=== PATIENT | female | born 1995 | race Two or more races ===

== ENCOUNTER 2016-06-27 12:08 | Emergency (ER) | payer MEDICAID ==
[~2016-06-27] VITALS: Ht 157.5 cm; Wt 63.5 kg
[~2016-06-27 12:08] MED LIST: MACROBID100 MG ORAL
[2016-06-27 12:24] VITALS: BP 134/81
[2016-06-27] MEDS ORDERED: Mylanta II UD 30ml ORAL ONE (12:45)
[2016-06-27] MEDS ORDERED: Famotidine 20 MG/ 2ML VIAL IVP ONE (12:45)
[2016-06-27] MEDS ORDERED: Lidocaine 2% Visc 15ml soln ORAL ONE (12:45)
[2016-06-27] MEDS ORDERED: Dicyclomine HCl 10mg/5ml oral soln ORAL ONE (12:45)
[2016-06-27 12:56] LABS: BASOPHILS % (AUTO) 0.5 % (0.0-2.0); EOSINOPHILS % (AUTO) 0.7 % (0.0-3.0); LYMPHOCYTES % (AUTO) 8.8 % (20.0-45.0); MEAN CORPUSCULAR HGB CONC 32.6 G/DL (32.0-36.0); MEAN CORPUSCULAR VOLUME 89 FL (80-99); MEAN PLATELET VOLUME 6.6 FL (6.5-10.1); MONOCYTES % (AUTO) 5.6 % (1.0-10.0); NEUTROPHILS % (AUTO) 84.4 % (45.0-75.0); PLATELET COUNT 320 K/UL (150-450); RED BLOOD COUNT 5.05 M/UL (4.20-5.40); RED CELL DISTRIBUTION WIDTH 11.9 % (11.6-14.8); WHITE BLOOD COUNT 12.6 K/UL (4.8-10.8)
[2016-06-27 13:04] LABS: ALANINE AMINOTRANSFERASE 11 U/L (3-33); ALBUMIN/GLOBULIN RATIO 1.3 (1.0-2.7); AMYLASE 46 U/L (10-110); ANION GAP 15 (5-15); ASPARTATE AMINO TRANSFERASE 17 U/L (5-40); CALCIUM 9.4 mg/dL (8.6-10.2); CARBON DIOXIDE 26 mEQ/L (20-30); CHLORIDE 96 mEQ/L (98-107); CREATININE 0.6 mg/dL (0.5-0.9); GLOMERULAR FILTRATION RATE > 60 mL/min (>60); HEMOLYSIS 2; LIPASE 22 U/L (< 60); POTASSIUM 3.8 mEQ/L (3.4-4.9); SODIUM 137 mEQ/L (135-145); TOTAL PROTEIN 7.9 g/dL (6.6-8.7); TROPONIN I < 0.30 ng/mL (<=0.30)
--- NOTE | 2016-06-27 13:27 | Emergency Room Report ---
History of Present Illness General Chief Complaint: Chest Pain Present Illness HPI The patient is a 20-year-old female with a history of congenital ASD presenting for mid upper abdominal pain which began yesterday. Pain is described as a 10/ 10 dull ache which radiates up to the mid chest. The patient denies any provoking relieving factors. Pain is constant. The patient denies any known, to the area or new activities. Pt denies recent travel. Pt denies OCP use. The pt denies any other symptoms including N, V, F, chills, cough, REYNOSO, dizziness, dysuria, vaginal DC, flank pain, SOB The patient states that she has never seen a leadlighter and denies any other medical Hx. Pt denies any familial cardiac Hx. Allergies: Coded Allergies: No Known Allergies (Unverified , 07/16/13) Patient History Past Medical History: see triage record Pertinent Family History: none Reviewed Nursing Documentation: PMH: Agreed, PSxH: Agreed Nursing Documentation-PMH Hx Cardiac Problems: Yes - ASD closure Review of Systems All Other Systems: negative except mentioned in HPI Physical Exam Vital Signs Date Time Temp Pulse Resp B/P Pulse Ox O2 Delivery O2 Flow Rate FiO2 06/27/16 12:12 98.2 81 20 134/81 99 Room Air Sp02 EP Interpretation: reviewed, normal General Appearance: no apparent distress, alert, GCS 15, non-toxic Head: normocephalic, atraumatic Eyes: bilateral eye PERRL, bilateral eye normal inspection ENT: hearing grossly normal, normal pharynx, no angioedema, normal voice Neck: full range of motion, supple/symm/no masses Respiratory: chest non-tender, lungs clear, normal breath sounds, no wheezing, speaking full sentences Cardiovascular #1: regular rate, rhythm, no edema Gastrointestinal: normal bowel sounds, soft, no mass, non-distended, tenderness - epigastric Genitourinary: normal inspection, no CVA tenderness Musculoskeletal: back normal, gait/station normal, normal range of motion, non- tender Neurologic: alert, oriented x3, responsive, motor strength/tone normal, sensory intact, speech normal Psychiatric: judgement/insight normal, memory normal, mood/affect normal, no suicidal/homicidal ideation Skin: normal color, no rash, warm/dry, well hydrated Lymphatic: no adenopathy Medical Decision Making PA Attestation Dr. Mckeon is my supervising physician. Patient management was discussed with my supervising physician Diagnostic Impression: Primary Impression: Gastritis ER Course The patient is a 20-year-old female with a history of congenital ASD presenting for mid upper abdominal pain which began yesterday. Differential diagnoses considered include but not limited to gastritis, pancreatitis, appendicitis, ACS, , UTI PE: Vitals WNL. NAD. RRR. Lungs CTA bilat Abdomen: Normal appearance. Non distended. No ecchymosis. Normal BS. + epigastric TTP. No McBurney point tenderness. No guarding. No CVA tenderness Lab work shows mild leukocytosis. Otherwise unremarkable The patient is given IV fluids, GI cocktail, and Pepcid and states that pain is better, but still present. The patient is given morphine for pain with good relief EKG and chest x-ray are unremarkable The patient is discharged home and will followup with PMD. Patient given prescription for Pepcid. ER precautions are given Laboratory Tests Test 06/27/16 12:20 06/27/16 13:40 White Blood Count 12.6 K/UL (4.8-10.8) H Red Blood Count 5.05 M/UL (4.20-5.40) Hemoglobin 14.7 G/DL (12.0-16.0) Hematocrit 44.9 % (37.0-47.0) Mean Corpuscular Volume 89 FL (80-99) Mean Corpuscular Hemoglobin 29.0 PG (27.0-31.0) Mean Corpuscular Hemoglobin Concent 32.6 G/DL (32.0-36.0) Red Cell Distribution Width 11.9 % (11.6-14.8) Platelet Count 320 K/UL (150-450) Mean Platelet Volume 6.6 FL (6.5-10.1) Neutrophils (%) (Auto) 84.4 % (45.0-75.0) H Lymphocytes (%) (Auto) 8.8 % (20.0-45.0) L Monocytes (%) (Auto) 5.6 % (1.0-10.0) Eosinophils (%) (Auto) 0.7 % (0.0-3.0) Basophils (%) (Auto) 0.5 % (0.0-2.0) Sodium Level 137 mEQ/L (135-145) Potassium Level 3.8 mEQ/L (3.4-4.9) Chloride Level 96 mEQ/L (98-107) L Carbon Dioxide Level 26 mEQ/L (20-30) Anion Gap 15 (5-15) Blood Urea Nitrogen 11 mg/dL (7-23) Creatinine 0.6 mg/dL (0.5-0.9) Estimate Glomerular Filtration Rate > 60 mL/min (>60) Glucose Level 102 mg/dL (74-106) Calcium Level 9.4 mg/dL (8.6-10.2) Total Bilirubin 0.3 mg/dL (0.0-1.2) Aspartate Amino Transferase (AST) 17 U/L (5-40) Alanine Aminotransferase (ALT) 11 U/L (3-33) Alkaline Phosphatase 72 U/L (35-104) Troponin I < 0.30 ng/mL (<=0.30) Total Protein 7.9 g/dL (6.6-8.7) Albumin 4.5 g/dL (3.5-5.2) Globulin 3.4 g/dL Albumin/Globulin Ratio 1.3 (1.0-2.7) Amylase Level 46 U/L (10-110) Lipase 22 U/L (< 60) Urine Color Yellow Urine Appearance Clear Urine pH 6 (4.5-8.0) Urine Specific [place] 1.020 (1.005-1.035) Urine Protein Negative (NEGATIVE) Urine Glucose (UA) Negative (NEGATIVE) Urine Ketones Negative (NEGATIVE) Urine Occult Blood 4+ (NEGATIVE) H Urine Nitrite Negative (NEGATIVE) Urine Bilirubin Negative (NEGATIVE) Urine Urobilinogen 1 MG/DL (0.0-1.0) H Urine Leukocyte Esterase 1+ (NEGATIVE) H Urine RBC 5-10 /HPF (0 - 2) H Urine WBC 2-4 /HPF (0 - 2) Urine Squamous Epithelial Cells Few /LPF (NONE/OCC) Urine Bacteria Few /HPF (NONE) Urine HCG, Qualitative Negative Urine Opiates Screen Negative (NEGATIVE) Urine Barbiturates Screen Negative (NEGATIVE) Phencyclidine (PCP) Screen Negative (NEGATIVE) Urine Amphetamines Screen Negative (NEGATIVE) Urine Benzodiazepines Screen Negative (NEGATIVE) Urine Cocaine Screen Negative (NEGATIVE) Urine Marijuana (THC) Screen Positive (NEGATIVE) H Lab Results Impression CBC shows mild leukocytosis. CMP unremarkable. Amylase and lipase unremarkable Troponin I unremarkable Urinalysis shows no signs of infection. EKG Diagnostic Results Rate: normal - 76 Rhythm: NSR ST Segments: no acute changes ASA given to the pt in ED: No PA Scribe Text EKG was reviewed and read with my supervising physician. No acute ST segment changes are seen. Normal rate and rhythm. No acute changes. Chest X-Ray Diagnostic Results EP Interpretation: Yes Findings: no consolidation, no effusion, no pneumothorax, no acute cardiopulmonary disease Number of Views: 1 PA Scribe Text I am acting as scribe for my supervising physician. My supervising physician's interpretation of the chest xrays are there is no consolidation, no effusion, no acute cardiopulmonary disease, no pneumothorax Last Vital Signs Date Time Temp Pulse Resp B/P Pulse Ox O2 Delivery O2 Flow Rate FiO2 06/27/16 12:24 81 20 Room Air 06/27/16 12:24 98.2 134/81 99 Status: improved Disposition: HOME, SELF-CARE Condition: Improved Scripts Famotidine (PEPCID) 40 Mg Tablet 40 MG PO DAILY, #7 TAB 0 Refills Prov: ZARA ARCHIBALD 06/27/16 Referrals: [facility]ERR[facility] (PCP) ZARA ARCHIBALD Jun 27, 2016 13:27
[2016-06-27 13:30] VITALS: BP 121/69
[2016-06-27] MEDS ORDERED: Morphine Sulfate 4mg/ml Inj IVP ONE (13:45)
[2016-06-27 14:04] LABS: APPEARANCE,URINE CLEAR; KETONES,URINE NEGATIVE (NEGATIVE); LEUKOCYTE ESTERASE ,URINE 1+ (NEGATIVE); NITRITE,URINE NEGATIVE (NEGATIVE); PH,URINE 6 (4.5-8.0); PROTEIN,URINE NEGATIVE (NEGATIVE); UROBILINOGEN,URINE 1 MG/DL (0.0-1.0)
[2016-06-27 14:17] LABS: BACTERIA,URINE FEW /HPF; SQUAMOUS EPITHELIAL CELL,UR FEW /LPF (NONE/OCC)
[2016-06-27 14:24] VITALS: BP 119/70
[2016-06-27] MEDS ORDERED: PEPCID40 MG PO (14:25)
[2016-06-27 14:29] VITALS: BP 119/70
--- NOTE | 2016-06-28 10:40 | Diagnostic Imaging Report ---
Indication: Chest pain Technique: XRAY CHEST 1 V Comparison: None Findings: The cardiomediastinal silhouette is within normal limits. There is no focal consolidation, pneumothorax or pleural effusion. Osseous structures demonstrate no acute abnormality. Impression: No acute cardiopulmonary disease.
--- NOTE | 2016-07-01 16:16 | Cardiology Report ---
APPROVED REPORT EKG Measurement Heart [id number] Normal sinus rhythm with sinus arrhythmia Normal ECG
== END 2016-06-27 14:34 | disposition home or self-care (01) ==
LOC: EMR 12:36
DX: K29.70 Gastritis, unspecified, without bleeding (principal); Q21.1 Atrial septal defect; R07.9 Chest pain, unspecified; D72.829 Elevated white blood cell count, unspecified
CPT/HCPCS: 36415; 71010; 80053; 80300; 81003; 81025; 82150; 83690; 84484; 85025; 93005; 96360; 96374; 96375; 99284; J2270; S0028

== ENCOUNTER 2017-07-27 22:18 | Emergency (ER) | payer MEDICAID, OTHER ==
[~2017-07-27] VITALS: Ht 157.5 cm; Wt 56.2 kg
[~2017-07-27 22:18] MED LIST changes: +PEPCID40 MG PO
[2017-07-27] MEDS ORDERED: Sodium Chloride 500ML 500 ML IV ONE (22:51)
[2017-07-27] MEDS ORDERED: Morphine Sulfate 4mg/ml Inj IVP ONE (23:00)
[2017-07-27 23:17] LABS: EOSINOPHILS % (AUTO) 1.9 % (0.0-3.0); HEMATOCRIT 43.3 % (37.0-47.0); HEMOGLOBIN 14.7 G/DL (12.0-16.0); LYMPHOCYTES % (AUTO) 28.4 % (20.0-45.0); MEAN CORPUSCULAR VOLUME 86 FL (80-99); MONOCYTES % (AUTO) 6.2 % (1.0-10.0); NEUTROPHILS % (AUTO) 62.6 % (45.0-75.0); PLATELET COUNT 284 K/UL (150-450); RED BLOOD COUNT 5.05 M/UL (4.20-5.40); RED CELL DISTRIBUTION WIDTH 11.9 % (11.6-14.8); WHITE BLOOD COUNT 9.6 K/UL (4.8-10.8)
[2017-07-27 23:25] LABS: APPEARANCE,URINE CLEAR; BILIRUBIN, URINE NEGATIVE (NEGATIVE); COLOR,URINE PALE YELLOW; GLUCOSE, URINE (UA) NEGATIVE (NEGATIVE); KETONES,URINE NEGATIVE (NEGATIVE); LEUKOCYTE ESTERASE ,URINE NEGATIVE (NEGATIVE); NITRITE,URINE NEGATIVE (NEGATIVE); PH,URINE 7 (4.5-8.0); PROTEIN,URINE NEGATIVE (NEGATIVE); UROBILINOGEN,URINE 1 MG/DL (0.0-1.0)
[2017-07-27 23:28] LABS: ANION GAP 8 mmol/L (5-15); BLOOD UREA NITROGEN 13 mg/dL (7-18); CALCIUM 9.2 MG/DL (8.5-10.1); CARBON DIOXIDE 29 MMOL/L (21-32); CHLORIDE 103 MMOL/L (98-107); CREATININE 0.8 MG/DL (0.55-1.30); POTASSIUM 3.9 MMOL/L (3.5-5.1); SODIUM 140 MMOL/L (136-145)
[2017-07-27 23:33] LABS: ALANINE AMINOTRANSFERASE 27 U/L (12-78); ALBUMIN 3.7 G/DL (3.4-5.0); ALBUMIN/GLOBULIN RATIO 0.9 (1.0-2.7); ALKALINE PHOSPHATASE 77 U/L (46-116); ASPARTATE AMINO TRANSFERASE 22 U/L (15-37); BILIRUBIN,TOTAL 0.4 MG/DL (0.2-1.0)
[2017-07-28] MEDS ORDERED: IBUPROFEN600 MG ORAL (00:33)
[2017-07-28] MEDS ORDERED: Ketorolac 30mg Inj IV ONE (00:45)
[2017-07-28] MEDS ORDERED: Isovue-300 100ml vial INJ PRN (00:45)
[2017-07-28 02:00] VITALS: BP 128/70
[2017-07-28 02:10] VITALS: BP 148/84
--- NOTE | 2017-07-28 03:16 | Emergency Room Report ---
History of Present Illness General Chief Complaint: Abdominal Pain Source: Patient Present Illness HPI 21-year-old female presents ED complaining of abdominal pain 1 day. R lower abdomen, sharp, 8 out of 10, nonradiating. Denies vaginal bleeding or discharge. Denies fevers or chills. Denies nausea or vomiting. No other aggravating relieving factors. Denies any other associated symptoms Allergies: Coded Allergies: No Known Allergies (Unverified , 07/16/13) Patient History Past Medical History: none Past Surgical History: other - ASD Pertinent Family History: none Social History: Denies: smoking, alcohol use, drug use Last Menstrual Period: last month Now: No Immunizations: UTD Reviewed Nursing Documentation: PMH: Agreed; PSxH: Agreed Nursing Documentation-PMH Hx Cardiac Problems: Yes - ASD closure Review of Systems All Other Systems: negative except mentioned in HPI Physical Exam Vital Signs Date Time Temp Pulse Resp B/P (MAP) Pulse Ox O2 Delivery O2 Flow Rate FiO2 07/27/17 22:23 98.4 61 18 148/84 97 Room Air 98.4 Sp02 EP Interpretation: reviewed, normal General Appearance: no apparent distress, alert, GCS 15, non-toxic Head: normocephalic, atraumatic Eyes: bilateral eye normal inspection, bilateral eye PERRL ENT: hearing grossly normal, normal pharynx, no angioedema, normal voice Neck: full range of motion, supple/symm/no masses Respiratory: chest non-tender, lungs clear, normal breath sounds, speaking full sentences Cardiovascular #1: regular rate, rhythm, no edema Cardiovascular #2: 2+ carotid (R), 2+ carotid (L), 2+ radial (R), 2+ radial (L) , 2+ dorsalis pedis (R), 2+ dorsalis pedis (L) Gastrointestinal: normal bowel sounds, soft, non-distended, no guarding, no rebound, tenderness - RLQ Rectal: deferred Genitourinary: normal inspection, no CVA tenderness Musculoskeletal: back normal, gait/station normal, normal range of motion, non- tender Neurologic: alert, oriented x3, responsive, motor strength/tone normal, sensory intact, speech normal Psychiatric: judgement/insight normal, memory normal, mood/affect normal, no suicidal/homicidal ideation Reflexes: 3+ bicep (R), 3+ bicep (L), 3+ tricep (R), 3+ tricep (L), 3+ knee (R) , 3+ knee (L) Skin: normal color, no rash, warm/dry, well hydrated Lymphatic: no adenopathy Medical Decision Making Diagnostic Impression: Primary Impression: Pelvic pain ER Course Hospital Course 21 yo F presents with lower abd pain Differential diagnosis includes-appendicitis, ovarian cyst/torsion, UTI Clinical course Patient placed on stretcher. After initial history and physical I ordered labs , IV fluids, pain medications and US, and CT Labs - no leukocytosis, electrolytes ok, LFTs normal, UA unremarkable Pelvic US - no acute process CT scan shows no acute pathology Discussed findings with patient. On reassessment pain improved. Patient is safe discharged home pending close outpatient follow-up I feel this is a highly complex case requiring extensive working including EKG/ Rhythm strip, Xray/CT/US, Blood/urine lab work, repeat exams while in ED, and administration of strong opiates/narcotics for pain control, admission to hospital or close patient follow up. Diagnosis - pelvic pain Stable and discharged to home with Rx Motrin. Followup with PMD/OBGYN. Return to ED if symptoms recur or worsen Labs Test 07/27/17 22:42 07/27/17 23:03 Urine Color Pale yellow Urine Appearance Clear Urine pH 7 (4.5-8.0) Urine Specific [place] 1.015 (1.005-1.035) Urine Protein Negative (NEGATIVE) Urine Glucose (UA) Negative (NEGATIVE) Urine Ketones Negative (NEGATIVE) Urine Occult Blood Negative (NEGATIVE) Urine Nitrite Negative (NEGATIVE) Urine Bilirubin Negative (NEGATIVE) Urine Urobilinogen 1 MG/DL (0.0-1.0) Urine Leukocyte Esterase Negative (NEGATIVE) Urine HCG, Qualitative Negative (NEGATIVE) White Blood Count 9.6 K/UL (4.8-10.8) Red Blood Count 5.05 M/UL (4.20-5.40) Hemoglobin 14.7 G/DL (12.0-16.0) Hematocrit 43.3 % (37.0-47.0) Mean Corpuscular Volume 86 FL (80-99) Mean Corpuscular Hemoglobin 29.1 PG (27.0-31.0) Mean Corpuscular Hemoglobin Concent 33.9 G/DL (32.0-36.0) Red Cell Distribution Width 11.9 % (11.6-14.8) Platelet Count 284 K/UL (150-450) Mean Platelet Volume 6.5 FL (6.5-10.1) Neutrophils (%) (Auto) 62.6 % (45.0-75.0) Lymphocytes (%) (Auto) 28.4 % (20.0-45.0) Monocytes (%) (Auto) 6.2 % (1.0-10.0) Eosinophils (%) (Auto) 1.9 % (0.0-3.0) Basophils (%) (Auto) 1.0 % (0.0-2.0) Sodium Level 140 MMOL/L (136-145) Potassium Level 3.9 MMOL/L (3.5-5.1) Chloride Level 103 MMOL/L (98-107) Carbon Dioxide Level 29 MMOL/L (21-32) Anion Gap 8 mmol/L (5-15) Blood Urea Nitrogen 13 mg/dL (7-18) Creatinine 0.8 MG/DL (0.55-1.30) Estimat Glomerular Filtration Rate > 60 mL/min (>60) Glucose Level 106 MG/DL (74-106) Calcium Level 9.2 MG/DL (8.5-10.1) Total Bilirubin 0.4 MG/DL (0.2-1.0) Aspartate Amino Transf (AST/SGOT) 22 U/L (15-37) Alanine Aminotransferase (ALT/SGPT) 27 U/L (12-78) Alkaline Phosphatase 77 U/L (46-116) Total Protein 7.7 G/DL (6.4-8.2) Albumin 3.7 G/DL (3.4-5.0) Globulin 4.0 g/dL Albumin/Globulin Ratio 0.9 (1.0-2.7) Lipase 116 U/L (73-393) CT/MRI/US Diagnostic Results CT/MRI/US Diagnostic Results #1: Imaging Test Ordered: Pelvic US Impression No intrauterine Unremarkable uterus and ovaries. No free pelvic fluid. Subcentimeter nabothian cysts. CT/MRI/US Diagnostic Results #2: Imaging Test Ordered: CT A/P Impression Moderate amount of free pelvic fluid (12 HU), more than expected for physiological amount, nonspecific. Normal appendix. Last Vital Signs Date Time Temp Pulse Resp B/P (MAP) Pulse Ox O2 Delivery O2 Flow Rate FiO2 07/28/17 02:10 98.4 18 148/84 97 Room Air 209.1 07/28/17 02:00 64 Status: improved Disposition: HOME, SELF-CARE Condition: Stable Scripts Ibuprofen* (MOTRIN*) 600 Mg Tablet 600 MG ORAL Q8H PRN for For Pain, #30 TAB 0 Refills Prov: Bashir Mckeon MD 07/28/17 Patient Instructions: Abdominal Pain, Adult Bashir Mckeon MD July 28, 2017 03:16
--- NOTE | 2017-07-28 10:32 | Diagnostic Imaging Report ---
Indication: Abdominal pain Technique: CT of the abdomen and pelvis utilizing automated exposure control with intravenous contrast. Venous scanning performed. CT dose: Total DLP 586.98 mGycm; CTDI vol 11.66 mGy Comparison: None Findings: Imaged lung bases are clear. Heart size within normal limits. No pericardial effusion. Liver, gallbladder, spleen, adrenal glands and pancreas are unremarkable. Kidneys enhance symmetrically. No urinary tract stone or hydronephrosis bilaterally. There is mild free pelvic fluid. There is a crenulated enhancing structure in the right adnexal region possibly representing a corpus luteal cyst. There is no free intraperitoneal air. No evidence of bowel obstruction. Appendix is normal in size and the lumen is filled with air. There is no evidence to suggest an acute appendicitis. Bladder is unremarkable in appearance. Abdominal aorta normal in caliber. No pathologically enlarged lymphadenopathy. No acute osseous abnormality seen. IMPRESSION: No definite evidence of acute intra-abdominal pathology. Appendix is normal. No evidence to suggest acute appendicitis. Crenulated enhancing structure in the right adnexa measuring approximately 2 cm represent a corpus luteum cyst. Nonspecific simple appearing free pelvic fluid. The CT scanner at [facility] is accredited by the [employer] and the scans are performed using protocols designed to limit radiation exposure to as low as reasonably achievable to attain images of sufficient resolution adequate for diagnostic evaluation.
--- NOTE | 2017-07-28 10:47 | Diagnostic Imaging Report ---
Indication: Pelvic pain negative test documented in the electronic medical record at time of study. Technique: Transabdominal and endovaginal pelvic ultrasound was performed. Findings: Uterus measures 7.9 x 4.7 x 3.9 cm. The endometrium measures approximately 1.2 cm in thickness possibly reflective of the secretory phase of the menstrual cycle. No focal uterine or endometrial lesion identified. There is subcentimeter anechoic structures in the cervix most representing nabothian cysts. The right ovary measures 2.7 x 2.2 x 2.2 cm/6.7 mL. The left ovary measures 2.1 x 2.1 x 1.9 cm/4.3 mL. Small ovarian follicles are noted bilaterally. Color and Doppler flow noted to the bilateral ovaries. There is mild free pelvic fluid. IMPRESSION: Nonspecific mild free pelvic fluid, possibly physiologic. No adnexal mass identified. No evidence to suggest ovarian torsion at this time. Subcentimeter nabothian cysts. This corresponds with the [facility] preliminary report.
== END 2017-07-28 02:10 | disposition home or self-care (01) ==
LOC: EMR 22:35
DX: R10.2 Pelvic and perineal pain (principal); R10.31 Right lower quadrant pain; N88.8 Other specified noninflammatory disorders of cervix uteri
CPT/HCPCS: 36415; 74177; 76830; 76856; 80053; 81003; 81025; 83690; 85025; 96374; 96375; 99284; J1885; J2270; J7040; Q9967

== ENCOUNTER 2018-01-28 15:36 | Emergency (ER) | payer OTHER ==
[~2018-01-28] VITALS: Ht 157.5 cm; Wt 54.4 kg
[~2018-01-28 15:36] MED LIST changes: +IBUPROFEN600 MG ORAL
[2018-01-28 15:45] VITALS: BP 118/64
[2018-01-28] MEDS ORDERED: traMADol 50mg tab ORAL ONE (16:30)
[2018-01-28] MEDS ORDERED: Methocarbamol 750mg tab ORAL ONE (16:30)
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
[2018-01-28 16:49] LABS: APPEARANCE,URINE CLEAR; BILIRUBIN, URINE NEGATIVE (NEGATIVE); GLUCOSE, URINE (UA) NEGATIVE (NEGATIVE); KETONES,URINE NEGATIVE (NEGATIVE); LEUKOCYTE ESTERASE ,URINE 1+ (NEGATIVE); NITRITE,URINE NEGATIVE (NEGATIVE); PH,URINE 7 (4.5-8.0); PROTEIN,URINE 1+ (NEGATIVE); UROBILINOGEN,URINE 1 MG/DL (0.0-1.0)
[2018-01-28 16:57] LABS: COLOR,URINE YELLOW
--- NOTE | 2018-01-28 17:58 | Diagnostic Imaging Report ---
EXAM: XR Pelvis, 1 or 2 Views CLINICAL HISTORY: PAIN TECHNIQUE: Frontal view of the pelvis. COMPARISON: No relevant prior studies available. FINDINGS: Bones/joints: No acute displaced fracture or dislocation. Soft tissues: Unremarkable. IMPRESSION: No acute displaced fracture or dislocation.
--- NOTE | 2018-01-28 18:07 | Diagnostic Imaging Report ---
EXAM: XR Left Hip, 1 View CLINICAL HISTORY: PAIN TECHNIQUE: Frontal view of the left hip. COMPARISON: No relevant prior studies available. FINDINGS: Bones/joints: No acute displaced fracture or dislocation. Soft tissues: Unremarkable. IMPRESSION: No acute displaced fracture or dislocation.
--- NOTE | 2018-01-28 18:08 | Diagnostic Imaging Report ---
EXAM: XR Left Femur, 2 Views CLINICAL HISTORY: PAIN TECHNIQUE: Frontal and lateral views of the left femur. COMPARISON: No relevant prior studies available. FINDINGS: Bones/joints: No acute displaced fracture or dislocation. Soft tissues: Unremarkable. IMPRESSION: No acute displaced fracture or dislocation.
--- NOTE | 2018-01-28 18:08 | Diagnostic Imaging Report ---
EXAM: XR Left Knee, 3 views CLINICAL HISTORY: PAIN TECHNIQUE: Three views of the left knee. COMPARISON: No relevant prior studies available. FINDINGS: Bones/joints: No acute displaced fracture or dislocation. No significant joint effusion. Soft tissues: Unremarkable. IMPRESSION: No acute displaced fracture or dislocation.
--- NOTE | 2018-01-28 18:09 | Diagnostic Imaging Report ---
EXAM: XR Right Knee, 3 views CLINICAL HISTORY: PAIN TECHNIQUE: Three views of the right knee. COMPARISON: No relevant prior studies available. FINDINGS: Bones/joints: No acute displaced fracture or dislocation. No significant joint effusion. Soft tissues: Unremarkable. IMPRESSION: No acute displaced fracture or dislocation.
[2018-01-28] MEDS ORDERED: TYLENOL EXTRA500 MG ORAL (18:18)
[2018-01-28 18:27] VITALS: BP 122/74
== END 2018-01-28 18:27 | disposition home or self-care (01) ==
LOC: EMR 16:43
DX: S80.02XA Contusion of left knee, initial encounter (principal); M25.559 Pain in unspecified hip; M25.561 Pain in right knee; V03.90XA Pedestrian on foot injured in collision with car, pick-up truck or van, unspecified whether traffic or nontraffic accident, initial encounter; Y93.01 Activity, walking, marching and hiking; Y92.9 Unspecified place or not applicable; Y99.9 Unspecified external cause status
CPT/HCPCS: 72170; 81003; 81025; 99284

== ENCOUNTER 2018-07-24 00:35 | Emergency (ER) | payer MEDICAID, OTHER ==
[~2018-07-24] VITALS: Ht 157.5 cm; Wt 61.2 kg
[~2018-07-24 00:35] MED LIST changes: +TYLENOL EXTRA500 MG ORAL
[2018-07-24] MEDS ORDERED: FERROUS SULFAT325 MG ORAL (00:47)
--- NOTE | 2018-07-24 00:50 | NUR ---
ED Nurse Note: pt walked in c/o abd pain, pt reports she fell down the stairs earlier and hit her abd, pt reports she is 18wk . pt states she still feels baby kicking and denies any vaginal bleeding at this time. will cont monitor. no obvious sx trauma/injury noted.
[2018-07-24 01:06] VITALS: BP 119/73
[2018-07-24 01:30] LABS: BASOPHILS % (AUTO) 0.3 % (0.0-2.0); EOSINOPHILS % (AUTO) 0.4 % (0.0-3.0); HEMATOCRIT 36.1 % (37.0-47.0); HEMOGLOBIN 12.6 G/DL (12.0-16.0); LYMPHOCYTES % (AUTO) 11.4 % (20.0-45.0); MEAN CORPUSCULAR VOLUME 83 FL (80-99); MONOCYTES % (AUTO) 5.2 % (1.0-10.0); NEUTROPHILS % (AUTO) 82.8 % (45.0-75.0); PLATELET COUNT 227 K/UL (150-450); RED BLOOD COUNT 4.35 M/UL (4.20-5.40); RED CELL DISTRIBUTION WIDTH 11.5 % (11.6-14.8)
[2018-07-24 01:47] LABS: APPEARANCE,URINE SLIGHTLY CLOUDY; BILIRUBIN, URINE NEGATIVE (NEGATIVE); COLOR,URINE PALE YELLOW; GLUCOSE, URINE (UA) NEGATIVE (NEGATIVE); KETONES,URINE NEGATIVE (NEGATIVE); LEUKOCYTE ESTERASE ,URINE 3+ (NEGATIVE); NITRITE,URINE NEGATIVE (NEGATIVE); PH,URINE 7 (4.5-8.0); PROTEIN,URINE NEGATIVE (NEGATIVE); UROBILINOGEN,URINE NORMAL MG/DL (0.0-1.0)
[2018-07-24 01:48] LABS: ANION GAP 9 mmol/L (5-15); BLOOD UREA NITROGEN 7 mg/dL (7-18); CALCIUM 8.9 MG/DL (8.5-10.1); CARBON DIOXIDE 26 MMOL/L (21-32); CHLORIDE 101 MMOL/L (98-107); CREATININE 0.4 MG/DL (0.55-1.30); POTASSIUM 3.2 MMOL/L (3.5-5.1); SODIUM 135 MMOL/L (136-145)
[2018-07-24 01:52] LABS: ALANINE AMINOTRANSFERASE 15 U/L (12-78); ALBUMIN 3.2 G/DL (3.4-5.0); ALBUMIN/GLOBULIN RATIO 0.8 (1.0-2.7); ALKALINE PHOSPHATASE 54 U/L (46-116); ASPARTATE AMINO TRANSFERASE 12 U/L (15-37); BILIRUBIN,TOTAL 0.2 MG/DL (0.2-1.0)
[2018-07-24] MEDS ORDERED: NITROFURANTOIN100 M2 ORAL (02:39)
[2018-07-24] MEDS ORDERED: TYLENOL EXTRA500 MG ORAL (02:39)
[2018-07-24 02:47] VITALS: BP 113/76
--- NOTE | 2018-07-24 02:47 | NUR ---
ED Nurse Note: pt cleared to be d/c per ERMD, pt discharge and aftercare instruction provided w/ prescription, pt education done via discussion and handout, pt advised to follow up with pcp or return to ed if changes in condition, pt verbalized understanding and agrees with plan, vss, ambulatory w/ steady gait, left w/ all belongings. iv d/c and id band removed.
--- NOTE | 2018-07-24 03:31 | Emergency Room Report ---
History of Present Illness General Chief Complaint: Multiple Trauma/Fall Source: Patient Present Illness HPI 22-year-old female presents to ED for evaluation. States that tonight she tripped and fell landing on her abdomen. States she is about 18 weeks . Notes some pain, 5 out of 10, nonradiating. Denies vaginal bleeding. Denies any other injuries. No other aggravating relieving factors. Denies any other associated symptoms Allergies: Coded Allergies: No Known Allergies (Unverified , 07/16/13) Patient History Past Medical History: none Past Surgical History: none Pertinent Family History: none Social History: Denies: smoking, alcohol use, drug use Last Menstrual Period: 04/24/18 Now: Yes - 18 WEEKS Immunizations: UTD Reviewed Nursing Documentation: PMH: Agreed; PSxH: Agreed Nursing Documentation-PMH Past Medical History: No History, Except For Hx Cardiac Problems: Yes - ASD closure Review of Systems All Other Systems: negative except mentioned in HPI Physical Exam Vital Signs Date Time Temp Pulse Resp B/P (MAP) Pulse Ox O2 Delivery O2 Flow Rate FiO2 07/24/18 00:42 98.1 86 12 96 Room Air 07/24/18 01:06 119/73 Sp02 EP Interpretation: reviewed, normal General Appearance: no apparent distress, alert, GCS 15, non-toxic Head: normocephalic, atraumatic Eyes: bilateral eye normal inspection, bilateral eye PERRL ENT: hearing grossly normal, normal pharynx, no angioedema, normal voice Neck: full range of motion, supple/symm/no masses Respiratory: chest non-tender, lungs clear, normal breath sounds, speaking full sentences Cardiovascular #1: regular rate, rhythm, no edema Cardiovascular #2: 2+ carotid (R), 2+ carotid (L), 2+ radial (R), 2+ radial (L) , 2+ dorsalis pedis (R), 2+ dorsalis pedis (L) Gastrointestinal: normal bowel sounds, soft, non-distended, no guarding, no rebound, tenderness Rectal: deferred Genitourinary: normal inspection, no CVA tenderness Musculoskeletal: back normal, gait/station normal, normal range of motion, non- tender Neurologic: alert, oriented x3, responsive, motor strength/tone normal, sensory intact, speech normal Psychiatric: judgement/insight normal, memory normal, mood/affect normal, no suicidal/homicidal ideation Reflexes: 3+ bicep (R), 3+ bicep (L), 3+ tricep (R), 3+ tricep (L), 3+ knee (R) , 3+ knee (L) Skin: normal color, no rash, warm/dry, well hydrated Lymphatic: no adenopathy Medical Decision Making Diagnostic Impression: Primary Impression: Threatened Additional Impressions: Fall Qualified Codes: W19.XXXA - Unspecified fall, initial encounter UTI (urinary tract infection) Qualified Codes: N39.0 - Urinary tract infection, site not specified ER Course Hospital Course 22-year-old female presents to ED complaining of abd pain s/p fall. + Differential diagnoses include: gastrits, gastroenterits, ectopic , ovarian torsion/cyst, UTI Clinical course Patient placed on stretcher in ED. After initial history and physical I ordered labs, and OB US Labs-no leukocytosis, electrolytes okay, beta hCG greater than 40,000, UA + bacteria OB US - IUP about 15 weeks with +FHR Discussed findings with patient. Can be discharged to home. Recommend close follow-up with COMPLIANCE TECHNICIAN. We'll provide referrals to COMPLIANCE TECHNICIAN Diagnosis - threatene , fall, UTI Stable and discharged to home with Rx macrobid, tylenol. Followup with PMD/OB/ JUNIOR SOFTWARE ENGINEER. Return to ED if symptoms recur or worsen Labs Test 07/24/18 01:13 White Blood Count 9.0 K/UL (4.8-10.8) Red Blood Count 4.35 M/UL (4.20-5.40) Hemoglobin 12.6 G/DL (12.0-16.0) Hematocrit 36.1 % (37.0-47.0) Mean Corpuscular Volume 83 FL (80-99) Mean Corpuscular Hemoglobin 29.1 PG (27.0-31.0) Mean Corpuscular Hemoglobin Concent 35.0 G/DL (32.0-36.0) Red Cell Distribution Width 11.5 % (11.6-14.8) Platelet Count 227 K/UL (150-450) Mean Platelet Volume 6.2 FL (6.5-10.1) Neutrophils (%) (Auto) 82.8 % (45.0-75.0) Lymphocytes (%) (Auto) 11.4 % (20.0-45.0) Monocytes (%) (Auto) 5.2 % (1.0-10.0) Eosinophils (%) (Auto) 0.4 % (0.0-3.0) Basophils (%) (Auto) 0.3 % (0.0-2.0) Urine Color Pale yellow Urine Appearance Slightly cloudy Urine pH 7 (4.5-8.0) Urine Specific [place] 1.010 (1.005-1.035) Urine Protein Negative (NEGATIVE) Urine Glucose (UA) Negative (NEGATIVE) Urine Ketones Negative (NEGATIVE) Urine Blood 1+ (NEGATIVE) Urine Nitrite Negative (NEGATIVE) Urine Bilirubin Negative (NEGATIVE) Urine Urobilinogen Normal MG/DL (0.0-1.0) Urine Leukocyte Esterase 3+ (NEGATIVE) Urine RBC 10-15 /HPF (0 - 2) Urine WBC 20-30 /HPF (0 - 2) Urine Squamous Epithelial Cells Few /LPF (NONE/OCC) Urine Bacteria Moderate /HPF (NONE) Urine Mucus Few /LPF (NONE/OCC) Urine HCG, Qualitative Positive (NEGATIVE) Sodium Level 135 MMOL/L (136-145) Potassium Level 3.2 MMOL/L (3.5-5.1) Chloride Level 101 MMOL/L (98-107) Carbon Dioxide Level 26 MMOL/L (21-32) Anion Gap 9 mmol/L (5-15) Blood Urea Nitrogen 7 mg/dL (7-18) Creatinine 0.4 MG/DL (0.55-1.30) Estimat Glomerular Filtration Rate > 60 mL/min (>60) Glucose Level 112 MG/DL (74-106) Calcium Level 8.9 MG/DL (8.5-10.1) Total Bilirubin 0.2 MG/DL (0.2-1.0) Aspartate Amino Transf (AST/SGOT) 12 U/L (15-37) Alanine Aminotransferase (ALT/SGPT) 15 U/L (12-78) Alkaline Phosphatase 54 U/L (46-116) Total Protein 7.0 G/DL (6.4-8.2) Albumin 3.2 G/DL (3.4-5.0) Globulin 3.8 g/dL Albumin/Globulin Ratio 0.8 (1.0-2.7) Lipase 109 U/L (73-393) Human Chorionic Gonadotropin, Quant 63725 mIU/mL (1-6) CT/MRI/US Diagnostic Results CT/MRI/US Diagnostic Results : Imaging Test Ordered: OB US Impression Presentation: There is a single uterine gestation in variable presentation with a heart rate of 161 bpm and an estimated gestational age of 15 weeks and 2 days. Placenta: The placenta is fundal in location. Amniotic fluid: The amniotic fluid volume is subjectively within normal limits. Anatomy: Evaluation of the anatomy is limited due to a large amount of motion and due to the early gestational age. Last Vital Signs Date Time Temp Pulse Resp B/P (MAP) Pulse Ox O2 Delivery O2 Flow Rate FiO2 07/24/18 02:47 98.1 78 18 113/76 100 Room Air Status: improved Disposition: HOME, SELF-CARE Condition: Stable Scripts Acetaminophen* (TYLENOL EXTRA STRENGTH*) 500 Mg Tablet 500 MG ORAL Q8H PRN for Prn Headache/Temp > 101, #30 TAB 0 Refills Prov: Bashir Mckeon MD 07/24/18 Nitrofurantoin Monohyd/M-Cryst* (MACROBID 100 MG*) 100 Mg Capsule 100 MG ORAL EVERY 12 HOURS for 7 Days, CAP Prov: Bashir Mckeon MD 07/24/18 [facility]: [facility] Patient Instructions: Threatened Miscarriage, [id number] Bashir Mckeon MD July 24, 2018 03:31
--- NOTE | 2018-07-24 23:54 | Diagnostic Imaging Report ---
EXAM: US After First Trimester, Transabdominal CLINICAL HISTORY: ABD PAIN, fall TECHNIQUE: Real-time transabdominal obstetrical ultrasound of the maternal pelvis and a second or third trimester with image documentation. COMPARISON: 07/27/17. FINDINGS: Presentation: There is a single uterine gestation in variable presentation with a heart rate of 161 bpm and an estimated gestational age of 15 weeks and 2 days. Placenta: The placenta is fundal in location. Amniotic fluid: The amniotic fluid volume is subjectively within normal limits. Anatomy: Evaluation of the anatomy is limited due to a large amount of motion and due to the early gestational age. BIOMETRICS BPD equals 29.9 mm which corresponds to an estimated gestational age of 15 weeks and 3 days. Head circumference equals 113.8 mm which corresponds to an estimated gestational age of 15 weeks and 4 days. Abdominal circumference equals 93.3 mm which corresponds to an estimated gestational age of 15 weeks and 3 days. Femur length equals 16.1 mm which corresponds to an estimated gestational age of 14 weeks and 5 days. MATERNAL: Uterus: Unremarkable. No myometrial mass. Cervix: The cervix is not well visualized. Free fluid: No free fluid. IMPRESSION: There is a single uterine gestation in variable presentation with a heart rate of 161 bpm and an estimated gestational age of 15 weeks and 2 days.
== END 2018-07-24 02:58 | disposition home or self-care (01) ==
LOC: EMR 01:30
DX: O20.0 Threatened abortion (principal); Z3A.18 18 weeks gestation of pregnancy; O26.92 Pregnancy related conditions, unspecified, second trimester
CPT/HCPCS: 36415; 76801; 76830; 80053; 81003; 81025; 83690; 84702; 85025; 87086; 99284